=== PATIENT | male | born 2000 | race Native Hawaiian/Other Pacific Islander ===

== ENCOUNTER 2020-09-20 23:00 | Emergency (ER) | payer OTHER ==
[~2020-09-20] VITALS: Ht 182.9 cm; Wt 127.0 kg
[2020-09-20 22:48] VITALS: TEMP 96.6
[2020-09-21 00:52] LABS: PLATELET COUNT 224 K/uL (142-355)
[2020-09-21 00:54] LABS: POTASSIUM 4.5 mmol/L (3.6-5.2)
[2020-09-21 07:05] VITALS: BP 124/81
== END 2020-09-21 07:05 | disposition home or self-care (01) ==
LOC: ED 23:00
PROVIDERS: Family Medicine
DX: F10.129 Alcohol abuse with intoxication, unspecified (principal); Y90.7 Blood alcohol level of 200-239 mg/100 ml; S00.03XA Contusion of scalp, initial encounter; V49.3XXA Car occupant (driver) (passenger) injured in unspecified nontraffic accident, initial encounter; Y92.89 Other specified places as the place of occurrence of the external cause
CPT/HCPCS: 36415; 80053; 80320; 85027; 99283